=== PATIENT | female | born 1950 | race Caucasian/White ===

== ENCOUNTER 2016-10-26 10:13 | Emergency (ER) | payer OTHER ==
--- NOTE | 2016-10-26 10:38 | UC ---
Cardiac HPI - HPI Summary HPI Summary: The patient comes in today for: 1. Shortness of breath/chest tightness: Onset: Last night: Palliative/provocative: Exertion makes her shortness of breath and chest tightness worse. Quality: Tightness. Region: Retrosteral and in the throat, but none in the back or arms. Severity: 5/10 Time: Constant. Associated symptoms: Previous disease: She has had a cold three days ago. And she has a history of asthma (30 years). Chest tightness: Retrosternal Shortness of breath present, but no nausea or diaphoresis. Previous heart disease, none, and non-smoker, no diabetes or high blood pressure, or family history of premature heart disease. Previous treatment: Albuterol MDI: 2 inhalations at 8 AM and 2 inhalations at 9 AM today. She used to use her albuterol only with colds. However, of the past year, she has been using it 2 puffs bid. In the Fall, as prophylaxis, she will use Flovent (strength unknown), 2 puffs twice a day. * - History of Current Complaint Chief Complaint: UCRespiratory Stated Complaint: SOB ASTHMA Time Seen by Provider: 10/26/16 10:31 Hx Obtained From: Patient, Family/Database Modeler - Allergy/Home Medications Allergies/Adverse Reactions: Allergies Allergy/AdvReac Type Severity Reaction Status Date / Time No Known Allergies Allergy Verified 10/26/16 10:22 Home Medications: Home Medications Acetaminophen TAB* [Tylenol TAB*] 975 mg PO BID PRN 10/26/16 [History Confirmed 10/26/16] Albuterol HFA INHALER* [Ventolin HFA Inhaler*] 1 puff INH QID PRN 10/26/16 [ History Confirmed 10/26/16] Loratadine 10 mg PO DAILY 10/26/16 [History Confirmed 10/26/16] PMH/Surg Hx/FS Hx/Imm Hx Respiratory History: Asthma - Surgical History Surgical History: Yes Surgery Procedure, Year, and Place: tubal ligation , - Social History Occupation: Employed Full-time Alcohol Use: Occasionally Substance Use Type: None Smoking Status (MU): Never Smoked Tobacco Review of Systems Constitutional: Negative Skin: Negative Eyes: Negative ENT: Negative Respiratory: Shortness Of Breath, Cough Cardiovascular: Chest Pain Gastrointestinal: Negative Genitourinary: Negative All Other Systems Reviewed And Are Negative: Yes Physical Exam Triage Information Reviewed: Yes Appearance: Well-Appearing, No Pain Distress, Well-Nourished Vital Signs: Initial Vital Signs Temp 99.0 F 10/26/16 10:19 Pulse 66 10/26/16 10:19 Resp 18 10/26/16 10:19 BP 138/71 10/26/16 10:19 Pulse Ox 97 10/26/16 10:19 Vital Signs Reviewed: Yes Eyes: Positive: Conjunctiva Clear. Negative: Discharge ENT: Positive: Hearing grossly normal. Negative: Pharyngeal erythema, Nasal congestion, TMs normal, TM bulging, TM dull, TM red, Tonsillar swelling, Tonsillar exudate Dental: Negative: Gross Decay/Caries @, Dental Fracture @ Neck: Positive: Supple, Nontender, No Lymphadenopathy. Negative: Nuchal Rigidity Respiratory: Positive: Chest non-tender, Lungs clear, No respiratory distress. Negative: Rhonchi, Wheezing Cardiovascular: Positive: RRR, No Murmur Abdomen Description: Positive: Nontender, No Organomegaly, Soft. Negative: Distended, Guarding Musculoskeletal: Positive: Strength Intact, ROM Intact Neurological: Positive: Alert, Muscle Tone Normal Psychological: Positive: Normal Response To Family, Age Appropriate Behavior, Consolable Skin: Negative: rashes, breakdown Re-Evaluation - Re-Evaluation First Eval Change: Improved - The patient states that she is 50% better and still does not want to go to the ER for evaluation of her chest pressure. Treatment options were discussed within the confines of her self-imposed limitations. - Assessment/Plan Course Of Treatment: Patient states that she thinks that she has her asthma acting up and just wanted treatment for it. She declined the ordered EKG for that reason. However, I spent about 20 minutes discussing with her and her male multifold operator that many conditions may present as others (cardiac problems appearing as asthma) and therefore my recommendation would be to go to the ER-- or at least get an EKG. However, after a long discussion, she only agreed to get a DuoNeb treatment and to see what this does first. She was told that I am concerned that she has chest tightness and shortness of breath when the lungs are initially clear. - Clinical Impression Provider Diagnoses: Chest pressure. Asthma. Shortness of breath Discharge - Discharge Plan Condition: Stable Disposition: HOME Patient Education Materials: Asthma (ED), Dyspnea (ED), Chest Pain (ED) Referrals: Nikia Riggins MD [Primary Care Provider] - As Soon As Possible (If you are not going to the ER as recommended, please at least re-consider if you get worse. Otherwise, please be seen soon as you can with your primary care provider. )
[2016-10-26] MEDS ORDERED: Albuterol/Ipratropium NEB.SOL* Albuterol 2.5 MG/Ipratropium 0.5 MG 3 ML INH ONE (10:58)
[2016-10-26 12:07] VITALS: BP 117/60
== END 2016-10-26 12:08 | disposition home or self-care (01) ==
LOC: UCEAST 10:13
DX: R07.89 Other chest pain (principal); J45.909 Unspecified asthma, uncomplicated
CPT/HCPCS: 99212; A9270-GY; G0463

== ENCOUNTER 2017-06-22 10:39 | Day surgery (SDC) | payer OTHER ==
[~2017-06-22 10:39] MED LIST: Buffered Lidocaine 0.9% SYRIN* 5 ML/SYR SYRINGE INTRADERM ONE
[2017-06-22] MEDS ORDERED: Buffered Lidocaine 0.9% SYRIN* 5 ML/SYR SYRINGE ONE (10:43)
[2017-06-22] MEDS ORDERED: ceFAZolin 1 GM in Dextrose (*) 2 GM/100 ML BAG IVPB ONE (10:43)
[2017-06-22] MEDS ORDERED: Lidocaine 1% MPF wEPI 200,000* 30 ML SDV ONE (14:00)
[2017-06-22] MEDS ORDERED: Bupivacaine 0.5% SDV PF* 10-30ML VIAL ONE (14:00)
[2017-06-22] MEDS ORDERED: fentaNYL* 50 MCG/ML 2 ML VIAL (100 MCG VIAL) ONE ×2 (14:29→14:53)
[2017-06-22] MEDS ORDERED: Propofol* 10 MG/ML 20 ML BTL IV PUSH ONE ×2 (14:54→15:23)
[2017-06-22] MEDS ORDERED: Naloxone* 0.4 MG/ML 1 ML VIAL IV PRN (15:00)
[2017-06-22] MEDS ORDERED: oxyCODONE/Acetamin 5/325 MG* TAB PO PRN (16:22)
[2017-06-22 16:54] VITALS: BP 138/74
--- NOTE | 2017-06-23 22:39 | OP ---
dATE OF OPERATION: 06/22/17 - SDS DATE OF : 50 SURGEON: Robin Solomon MD FAMILY PRACTICE DOCTOR: None. ANESTHESIOLOGIST: Dr. Padron. ANESTHESIA: Local MAC. PRE-OP DIAGNOSIS: Incarcerated right ventral hernia. POST-OP DIAGNOSIS: Incarcerated right ventral hernia. OPERATIVE PROCEDURE: Open reduction and repair of incarcerated right ventral hernia. ESTIMATED BLOOD LOSS: Minimal. IV FLUIDS: Crystalloids. SPECIMEN: Hernia sac. DRAINS: None. COMPLICATIONS: None. COUNTS: Instrument, needle, and sponge counts were correct. DESCRIPTION OF PROCEDURE: The patient was brought to the operating room and placed on the table supine. Sequential compression devices were placed on both lower extremities. The patient's right groin was prepped and draped in the usual sterile fashion and a time-out was performed. Local anesthetic was infiltrated as a field block. An oblique incision was created over the palpable mass below the inguinal ligament. Subcutaneous tissues were divided and the firm fatty mass was encountered, which was consistent with an incarcerated ventral hernia sac, and then within the sac was noted to be the appendix. The appendix appeared friable. The portion of the attached mesenteric fat appeared to be chronically inflamed. The sac was excised and submitted to pathology. Ultimately, the appendix was reduced and then the hernia was repaired with 2 interrupted sutures of 2-0 Prolene suturing to close the defect. The wound was closed in 2 layers with 3-0 Vicryl to approximate the subcutaneous tissues and 4-0 Monocryl was used to close the skin in a running subcuticular fashion. Steri-Strips were applied with the dry dressing. The patient tolerated the procedure well and was transferred to Recovery in stable. [id number]/[facility] #: [id number] [facility]
== END 2017-06-22 16:54 | disposition home or self-care (01) ==
LOC: OR 10:39
PROVIDERS: ATTEND Surgery
DX: K43.6 Other and unspecified ventral hernia with obstruction, without gangrene (principal); J45.909 Unspecified asthma, uncomplicated; M15.0 Primary generalized (osteo)arthritis
CPT/HCPCS: 88302; J0690; J2001; J2704; J3010

== ENCOUNTER 2018-09-13 11:03 | Day surgery (SDC) | payer OTHER ==
[~2018-09-13 11:03] MED LIST changes: +Acetaminophen TAB* 325 MG PO PRN; -Buffered Lidocaine 0.9% SYRIN* 5 ML/SYR SYRINGE INTRADERM ONE; +Buffered Lidocaine 1% SYRIN* 1 ML/SYRINGE INTRADERM ONE; +Cyclopentolate 1% OPTH.SOL* 2 ML BTL ONE; +Ketorolac 0.5% OPHTH (NF) 0.5 % 5 ML BTL ONE; +Lidocaine 1%* 5 ML VIAL ONE; +Neomycin/Polymy/Dex OPHTH.OIN* 3.5 GM ONE; +Phenylephrine OPHTH SOL 2.5%* 2 ML ONE; +Tetracaine 0.5% OPTH.SOL 4 ML* 1 DROP BTL ONE; +Tropicamide 1% OPTH.SOL* BTL ONE
[2018-09-13] MEDS ORDERED: fentaNYL* 50 MCG/ML 2 ML VIAL (100 MCG VIAL) ONE (11:36)
[2018-09-13] MEDS ORDERED: Phenylephr/Ketorolac 1%/0.3% OPH DROP BTL ONE (12:19)
[2018-09-13 12:53] VITALS: BP 158/64
--- NOTE | 2018-09-13 15:21 | OP ---
DATE OF OPERATION: 09/13/18 [facility] DATE OF : 50 SURGEON: Dr. Jorge Luis Santiago. AUTO BODY MECHANIC APPRENTICE: None. ANESTHESIA: Topical with intravenous sedation. PRE-OP DIAGNOSIS: Cataract, right eye. POST-OP DIAGNOSIS: Cataract, right eye. OPERATIVE PROCEDURE: Phacoemulsification and cataract extraction with posterior chamber intraocular lens implant, right eye. COMPLICATIONS: None. BLOOD LOSS: None. DESCRIPTION OF PROCEDURE: The patient was brought to the operating room and received a small amount of intravenous sedation. A drop of Tetracaine was placed in her right eye. She was prepped and draped in the usual sterile fashion for ophthalmic surgery and attention was directed to the right eye where a speculum was placed. A paracentesis was created at the 11 o'clock position and 0.1 cc of 1 percent preservative-free Lidocaine was injected into the anterior chamber followed by DisCoVisc. The eye was digitally stabilized while a 2.75 mm keratome was used to create a triplanar clear corneal incision at the 9 o'clock position. A continuous curvilinear capsulorrhexis was created with a cystotome and Utrata forceps. BSS on a cannula was used to hydrodissect the lens from the capsule. Phacoemulsification was performed in a divide-and- conquer technique to create four fragments which were removed. Residual cortical material was removed with irrigation and aspiration. DisCoVisc was used to inflate the capsular bag and an AU00T0 10.0 diopter lens was folded and inserted into the capsular bag. DisCoVisc was removed using irrigation and aspiration. BSS on a cannula was used to hydrate the corneal stroma and seal the wound. At the end of the case the pupil was round and the lens was centered. The eye was of normal pressure and the wound was water tight. The speculum was removed and topical Maxitrol ointment was placed on the surface of the eye. The eye was closed, patched and shielded and the patient was sent to the recovery room in stable condition with post operative instructions and follow-up appointment given. [id number]/[facility] #: [id number] DAVID
== END 2018-09-13 12:45 | disposition home or self-care (01) ==
LOC: OREAST 11:03
PROVIDERS: ATTEND Ophthalmology
DX: H25.11 Age-related nuclear cataract, right eye (principal); J45.909 Unspecified asthma, uncomplicated; I73.00 Raynaud's syndrome without gangrene
CPT/HCPCS: A9270-GY; C9447; J3010; V2632

== ENCOUNTER 2018-09-20 08:02 | Day surgery (SDC) | payer OTHER ==
[~2018-09-20 08:02] MED LIST changes: -Cyclopentolate 1% OPTH.SOL* 2 ML BTL ONE; -Ketorolac 0.5% OPHTH (NF) 0.5 % 5 ML BTL ONE; -Lidocaine 1%* 5 ML VIAL ONE; -Neomycin/Polymy/Dex OPHTH.OIN* 3.5 GM ONE; -Phenylephrine OPHTH SOL 2.5%* 2 ML ONE; -Tetracaine 0.5% OPTH.SOL 4 ML* 1 DROP BTL ONE; -Tropicamide 1% OPTH.SOL* BTL ONE
[2018-09-20] MEDS ORDERED: Midazolam* 1 MG/ML 5 ML VIAL (5 MG) ONE (08:27)
[2018-09-20] MEDS ORDERED: fentaNYL* 50 MCG/ML 2 ML VIAL (100 MCG VIAL) ONE (08:28)
[2018-09-20 10:15] VITALS: BP 142/57
--- NOTE | 2018-09-20 11:12 | OP ---
OPERATIVE REPORT: DATE OF OPERATION: 09/20/18 - [place] DATE OF : 11/15/18 SURGEON: Dr. Jorge Luis Santiago. INSURANCE AND FINANCIAL SERVICES AGENT: None. ANESTHESIA: Topical with intravenous sedation. PRE-OP DIAGNOSIS: Cataract, left eye. POST-OP DIAGNOSIS: Cataract, left eye. OPERATIVE PROCEDURE: Phacoemulsification and cataract extraction with posterior chamber intraocular lens implant, left eye. COMPLICATIONS: None. BLOOD LOSS: None. OPERATIVE FINDINGS: The patient was brought to the operating room and received a small amount of intravenous sedation. A drop of Tetracaine was placed in her left eye. She was prepped and draped in the usual sterile fashion for ophthalmic surgery and attention was directed to the left eye where a speculum was placed. A paracentesis was created at the 5 o'clock position and 0.1 cc of 1 percent preservative-free Lidocaine was injected into the anterior chamber followed by DisCoVisc. The eye was digitally stabilized while a 2.75 mm keratome was used to create a triplanar clear corneal incision at the 3 o'clock position. A continuous curvilinear capsulorrhexis was created with a cystotome and Utrata forceps. BSS on a cannula was used to hydrodissect the lens from the capsule. Phacoemulsification was performed in a [id number] technique to create four fragments which were removed. Residual cortical material was removed with irrigation and aspiration. DisCoVisc was used to inflate the capsular bag and an AU00T0 10.0 Diopter lens was folded and inserted into the capsular bag. DisCoVisc was removed using irrigation and aspiration. BSS on a cannula was used to hydrate the corneal stroma and seal the wound. At the end of the case the pupil was round and the lens was centered. The eye was of normal pressure and the wound was water tight. The speculum was removed and topical Maxitrol ointment was placed on the surface of the eye. The eye was closed, patched and shielded and the patient was sent to the recovery room in stable condition with post operative instructions and follow-up appointment given. [id number]/[facility] #: [id number] DAVID
[2018-09-20] MEDS ORDERED: Phenylephr/Ketorolac 1%/0.3% OPH DROP BTL ONE (12:55)
[2018-09-20] MEDS ORDERED: Neomycin/Polymy/Dex OPHTH.OIN* 3.5 GM ONE (12:56)
[2018-09-20] MEDS ORDERED: Ketorolac 0.5% OPHTH (NF) 0.5 % 5 ML BTL ONE (12:56)
[2018-09-20] MEDS ORDERED: Tropicamide 1% OPTH.SOL* BTL ONE (12:56)
[2018-09-20] MEDS ORDERED: Tetracaine 0.5% OPTH.SOL 4 ML* 1 DROP BTL ONE (12:56)
[2018-09-20] MEDS ORDERED: Cyclopentolate 1% OPTH.SOL* 2 ML BTL ONE (12:56)
[2018-09-20] MEDS ORDERED: Phenylephrine OPHTH SOL 2.5%* 2 ML ONE (12:56)
[2018-09-20] MEDS ORDERED: Lidocaine 1%* 5 ML VIAL ONE (12:56)
== END 2018-09-20 09:28 | disposition home or self-care (01) ==
LOC: OREAST 08:02
PROVIDERS: ATTEND Ophthalmology
DX: H25.12 Age-related nuclear cataract, left eye (principal); J45.909 Unspecified asthma, uncomplicated; M19.90 Unspecified osteoarthritis, unspecified site
CPT/HCPCS: A9270-GY; C9447; J2250; J3010; V2632